=== PATIENT | male | born 1995 ===

== ENCOUNTER 2018-04-22 14:26 | Emergency (ER) | payer SELFPAY ==
[~2018-04-22] VITALS: Ht 182.9 cm; Wt 127.0 kg
[2018-04-22 14:30] VITALS: BP 141/63; PULSE 96; RESP 16; TEMP 98.4; O2SAT 99
[2018-04-22] MEDS ORDERED: IBUPROFEN 800 MG TAB PO ONE (14:45)
--- NOTE | 2018-04-22 14:47 | PD ---
HPI Chief Complaint: Injury Time Seen by Provider: 14:37 Travel History International Travel<30 days: No Contact w/Intl Traveler<30days: No Traveled to known affect area: No History of Present Illness HPI 22-year-old male presents to the ED for evaluation of 10/10 right ankle pain. Onset after twisting his ankle while playing basketball. Quality throbbing, exacerbated by weightbearing and range of motion. No alleviating factors reported. Patient has been ambulatory since the accident. He denies numbness, tingling, weakness, limitations to range of motion of the extremity. Denies previous injury to the area. He treated at home with ice with no improvement of symptoms. PFSH Social History Tobacco Use: No Allergies-Medications (Allergen,Severity, Reaction): Coded Allergies: No Known Allergies (Unverified , 04/22/18) Reported Meds & Prescriptions Reported Meds & Active Scripts Active Ibuprofen 800 Mg Tab 800 Mg PO Q8H PRN Physical Exam Narrative GENERAL: Well-nourished, well-developed obese black male in no acute distress. SKIN: Focused skin assessment warm/dry. HEAD: Normocephalic. EYES: No scleral icterus. No injection or drainage. NECK: Supple, trachea midline. No JVD or lymphadenopathy. CARDIOVASCULAR: Regular rate and rhythm without murmurs, gallops, or rubs. RESPIRATORY: Breath sounds equal bilaterally. No accessory muscle use. GASTROINTESTINAL: Abdomen soft, non-tender, nondistended. MUSCULOSKELETAL: No cyanosis, or edema. FOCUSED RIGHT LOWER EXTREMITY EXAM: 2+ DP pulse. Tender to palpation of the lateral malleolus. Squeeze test negative. No tenderness to palpation of the base the fifth or navicular. Patient is able to flex and extend the ankle. He is able wiggle the toes. Sensation intact and cap refill less than 2 seconds on each digit distally. BACK: Nontender without obvious deformity. No CVA tenderness. Data Data Last Documented VS Vital Signs Date Time Temp Pulse Resp B/P (MAP) Pulse Ox O2 Delivery O2 Flow Rate FiO2 04/22/18 14:30 98.4 96 16 141/63 (89) 99 Orders Orders Ankle, Complete ([id number]) (04/22/18 14:37) Ibuprofen (Motrin) (04/22/18 14:45) Ice / Cold Pack PRN (04/22/18 14:40) Carter Bandage (04/22/18 14:58) Ed Discharge Order (04/22/18 14:58) [facility] Medical Decision Making Medical Screen Exam Complete: Yes Emergency Medical Condition: Yes Differential Diagnosis Strain versus sprain versus avulsion fracture versus fracture versus other Narrative Course 22-year-old male presents to the ED for evaluation of 10/10 right ankle pain. Onset after twisting his ankle while playing basketball. Vitals reviewed. On exam the patient has tenderness to palpation of the lateral malleolus but exam is otherwise reassuring. Ice pack was applied. Patient was administered 800 mg ibuprofen. X-rays reveal no evidence of fracture. This is ankle sprain. Patient is provided with an Carter wrap, short course of anti-inflammatories, encouraged to utilize RICE therapy, follow with the orthopedist if symptoms fail to resolve. He indicated understanding of instructions and is agreeable to care plan. The patient is stable and discharged home. Diagnosis Primary Impression: Ankle sprain Qualified Codes: S93.401A - Sprain of unspecified ligament of right ankle, initial encounter Referrals: Orthopedist Additional Instructions: Rest, ice, elevate the extremity. Apply ice no longer than 10-15 minutes per hour a few times a day. 800 mg ibuprofen up to 3 times a day as needed for pain. Return to normal, gentle activity as tolerated. No running, jumping activities for the next few weeks. Follow up with orthopedist or your primary care provider. Return to the ED for any urgent or emergent medical condition. Med/Other Pt SpecificInfo: Prescription(s) given Scripts Ibuprofen (Ibuprofen) 800 Mg Tab 800 MG PO Q8H Y for Pain/Inflammation, #12 TAB 0 Refills Prov: Chino Allen MD 04/22/18 Disposition: 01 DISCHARGE HOME Condition: Stable Starla Crain April 22, 2018 14:47
[2018-04-22] MEDS ORDERED: IBUP1TAB7 PO (15:00)
--- NOTE | 2018-04-22 15:05 | RADRPT ---
EXAM DATE: 04/22/2018 2:54 PM EDT AGE/SEX: 22 years / Male INDICATIONS: Right ankle pain on lateral side after rolling it playing basketball. CLINICAL DATA: This is the patient's initial encounter. Patient reports that signs and symptoms have been present for 1 day and indicates a pain score of 8/10. MEDICAL/SURGICAL HISTORY: None. None. COMPARISON: No prior [facility] exams available for comparison. FINDINGS: Bony structures are intact and in normal alignment. Joints are intact without dislocation or signifi cant arthropathy. Osseous density is normal. There is soft tissue swelling over the lateral malleol us. No radiopaque foreign bodies seen. CONCLUSION: Soft tissue swelling with no acute fracture or malalignment. Electronically signed by: Doug Lane MD 04/22/2018 3:04 PM EDT
== END 2018-04-22 15:41 | disposition home or self-care (01) ==
LOC: NEPK 14:26
DX: S93.401A Sprain of unspecified ligament of right ankle, initial encounter (principal); X50.9XXA Other and unspecified overexertion or strenuous movements or postures, initial encounter; Y93.67 Activity, basketball
CPT/HCPCS: 73610; 99283